=== PATIENT | male | born 1965 | race Caucasian/White ===

== ENCOUNTER → 2017-06-09 | Outpatient (CLI) | payer OTHER ==
[~2017-06-09] MED LIST: AMLO-114 PO; BYS/5 PO; CALC1CHW46 PO; LISI40TA PO; NAPR220T40 PO; OPTIRAY 320 IV PRN
--- NOTE | 2017-06-09 16:24 | DIAGNOSTIC IMAGING REPORT ---
(CHEST) THORAX WITH CLINICAL HISTORY: 51 years-old Male presenting with GERD, COUGH. TECHNIQUE: Multidetector CT imaging of the chest was performed after the administration of intravenous contrast. IV contrast: 92 mL of Optiray 320. A dose lowering technique was used consistent with the principles of ALARA (as low as reasonably achievable). COMPARISON: 08/08/2011. CT DOSE (mGy.cm): The estimated cumulative dose is 704.43 mGycm. FINDINGS: [employer] topogram: Unremarkable. On soft tissue windows, normal thyroid and thoracic inlet. Scattered subcentimeter mediastinal lymph nodes. Normal aorta. Possible left atrial enlargement. Coronary artery calcification. No pericardial or pleural effusion. Suggestion of hepatic steatosis. On lung windows, minimal groundglass opacity and subpleural reticulation at the lung bases. Solid 5 mm perifissural nodule in the left lower lobe (series 4 image 128). Airways patent. Mild bronchial wall thickening suggested. On bone windows, degenerative changes of the spine. IMPRESSION: 1. No acute intrathoracic pathology. 2. Solid 5 mm perifissural nodule in the left lower lobe. This is unchanged since 2010. 3. Minimal groundglass opacity and subpleural reticulation at the lung bases, possibly atelectasis or postinfectious/postinflammatory. 4. Mild bronchial wall thickening suggested, nonspecific. 5. Possible left atrial enlargement. Electronically signed by: Surendra Biswas M.D. 06/09/2017 4:23 PM Dictated Date/Time: 06/09/2017 4:18 PM
== END | disposition home or self-care (01) ==
LOC: C.CTS 15:48
PROVIDERS: ATTEND Physician Assistant
DX: J44.1 Chronic obstructive pulmonary disease with (acute) exacerbation (principal); R06.09 Other forms of dyspnea; R05 Cough; K21.9 Gastro-esophageal reflux disease without esophagitis

== ENCOUNTER → 2017-12-19 | Outpatient (CLI) | payer OTHER ==
[~2017-12-19] MED LIST changes: -OPTIRAY 320 IV PRN
--- NOTE | 2017-12-19 12:57 | DIAGNOSTIC IMAGING REPORT ---
ABDOMEN FOR HERNIA HISTORY: 52 years-old Male R10.9 Abdominal pain, unspecified abdominal [id number] acute right-sided abdominal pain with history of prior hernia repair COMPARISON: CT chest 06/09/2017 TECHNIQUE: Multiple real-time sonographic images of the abdominal right upper quadrant were obtained assessing grayscale appearance FINDINGS: No definite abdominal wall hernia identified. There is increased echogenicity of the liver with poor through transmission suggesting fatty infiltration. Liver measures up to 24 cm in length. No intrahepatic biliary ductal dilation. The visualized portions of the gallbladder appear unremarkable without wall thickening or shadowing cholelithiasis. Study is overall limited secondary to patient body habitus. IMPRESSION: 1. No abdominal wall hernia identified within the right upper abdomen. 2. Hepatic steatosis. The above report was generated using voice recognition software. It may contain grammatical, syntax or spelling errors. Electronically signed by: Sandro Rehman M.D. 12/19/2017 12:56 PM Dictated Date/Time: 12/19/2017 12:51 PM
== END | disposition home or self-care (01) ==
LOC: C.ULTR 12:21
PROVIDERS: ATTEND Family Medicine
DX: R10.9 Unspecified abdominal pain (principal); K76.0 Fatty (change of) liver, not elsewhere classified

== ENCOUNTER 2019-04-11 18:38 | Inpatient (IN) ==
[2019-04-11] MEDS ORDERED: HYDROmorphone INJ 0.5 MG/0.5 ML SYR IV STA (18:59)
[2019-04-11] MEDS ORDERED: ONDANSETRON INJ 2 MG/ML 2 ML VIAL IV STA (18:59)
[2019-04-11] MEDS ORDERED: SODIUM CHLORIDE 0.9% 1000ML 2,000 ML IV ONE (19:01)
[2019-04-11 19:25] LABS: Basophils # (auto) 0.06 K/uL (0-0.2); Basophils % (auto) 0.4 %; Eosinophils # (auto) 0.09 K/uL (0-0.5); Eosinophils % (auto) 0.6 %; Hematocrit (blood only) 44.8 % (42-52); Hemoglobin 16.5 g/dL (14.0-18.0); Immature Granulocytes # (auto) 0.11 K/uL (0.00-0.02); Immature Granulocytes % (auto) 0.7 %; Lymphocytes # (auto) 2.65 K/uL (1.2-3.4); Mean Corpuscular Hgb Conc 36.8 g/dL (32-36); Mean Platelet Volume 8.9 fL (7.4-10.4); Monocytes # (auto) 1.65 K/uL (0.11-0.59); Monocytes % (auto) 11.2 %; Neutrophils # (auto) 10.18 K/uL (1.4-6.5); Neutrophils % (auto) 69.1 %; Platelet Count 340 K/uL (130-400); RDW Coefficient of Variation 13.4 % (11.5-14.5); Red Blood Count 4.98 M/uL (4.7-6.1); White Blood Count 14.74 K/uL (4.8-10.8)
[2019-04-11 19:52] LABS: Alanine Aminotransferase 51 U/L (12-78); Albumin Globulin Ratio 1.2 (0.9-2); Alkaline Phosphatase 75 U/L (45-117); Aspartate Aminotransferase 55 U/L (15-37); BUN Creatinine Ratio 8.2 (10-20); Bilirubin,Total 1.1 mg/dl (0.2-1); Blood Urea Nitrogen 48 mg/dl (7-18); Calcium 10.4 mg/dl (8.5-10.1); Carbon Dioxide 19 mmol/L (21-32); Chloride 97 mmol/L (98-107); Est GFR (African American) 11.9; Est GFR (Non-African American) 10.2; Globulin 4.2 gm/dl (2.5-4.0); Glucose 125 mg/dl (70-99); Magnesium 2.6 mg/dl (1.8-2.4); Potassium 4.6 mmol/L (3.5-5.1); Sodium 132 mmol/L (136-145); Total Protein 9.2 gm/dl (6.4-8.2); Troponin I < 0.015 ng/ml (0-0.045)
--- NOTE | 2019-04-11 20:07 | Ultrasound Report ---
ULTRASOUND RIGHT UPPER QUADRANT ABDOMEN CLINICAL HISTORY: Right upper quadrant abdominal pain. COMPARISON STUDY: Abdominal CT dated 12/07/2007. TECHNIQUE: Real-time, grayscale, and color flow sonography of the right upper quadrant of the abdomen was performed. Images are reviewed in the transverse and longitudinal planes. FINDINGS: Liver: The liver is enlarged and demonstrates heterogeneously increased echotexture consistent with s evere hepatic steatosis. Note that this degrades acoustic penetration of the liver. Fatty sparing is seen adjacent to gallbladder fossa. There is no intrahepatic biliary ductal dilatation. The main port al vein is patent. Gallbladder: The gallbladder is normal in appearance. No gallstones are identified. There is no gallb ladder wall thickening or pericholecystic fluid. A sonographic Cramer's sign is reportedly absent. Th e common bile duct measures up to 0.5 cm in diameter. Pancreas: Not visualized due to overlying bowel gas. Right kidney: Survey images of the right kidney demonstrate normal size and echotexture. There is no hydronephrosis. Ascites: None. IMPRESSION: 1. No acute sonographic abnormality is identified in the right upper quadrant. No gallstones are seen . 2. Hepatomegaly and severe hepatic steatosis. Electronically signed by: Andrade Zuñiga M.D. 04/11/2019 8:06 PM
[2019-04-11 20:08] LABS: Lyme Ab IgG w/WB Rflx Negative (Negative); Lyme Ab IgM w/WB Rflx Negative (Negative)
--- NOTE | 2019-04-11 20:21 | CT Scan Report ---
CT SCAN OF THE ABDOMEN AND PELVIS WITHOUT IV CONTRAST CLINICAL HISTORY: Generalized abdominal pain. Acute renal failure. Cramping. COMPARISON STUDY: Abdominal CT dated 12/07/2007. Abdominal ultrasound performed the same day 9. TECHNIQUE: CT scan of the abdomen and pelvis is performed from the lung bases to the proximal femora. Images are reviewed in the axial, sagittal, and coronal planes. IV contrast was not administered for this examination due to renal insufficiency. Note that the examination is suboptimal without oral an d IV contrast. A dose lowering technique was utilized adhering to the principles of ALARA. CT DOSE: 1701.77 mGy.cm FINDINGS: Lung bases: The heart is normal in size and without pericardial effusion. The lung bases are clear. Liver: The unenhanced liver is enlarged, measuring 25 cm in length. The liver demonstrates diffusely diminished attenuation consistent with severe hepatic steatosis. Fatty sparing is seen adjacent to th e gallbladder fossa. There is no intrahepatic biliary ductal dilatation. Gallbladder: Unremarkable. Spleen: Normal in size and attenuation. Pancreas: The unenhanced pancreas is grossly unremarkable. Adrenal glands: Unremarkable. Kidneys: The unenhanced kidneys are normal in size and without hydronephrosis. There are no renal peter culi identified. There is no evidence of contour deforming renal mass lesion. A subcentimeter hyperde nse cyst is noted in the upper pole of the right kidney on image #112. A circumaortic left renal vein is incidentally noted. Abdominal vasculature: The abdominal aorta is normal in course and caliber noting mild atheroscleroti c calcification. Bowel: There is no bowel obstruction. The appendix is well-visualized and normal. Peritoneum: There is no intraperitoneal free air or abdominal ascites. Lymphadenopathy: None. Pelvic viscera: The bladder is decompressed and not well evaluated. The prostate and seminal vesicles are normal as imaged. There is a small fat-containing right inguinal hernia. Skeletal structures: Degenerative changes noted in the sacroiliac joints. A large posterior disc oste ophyte complex is seen at L4-L5. No lytic or blastic lesions are seen. IMPRESSION: 1. There are no acute infectious or inflammatory findings in the abdomen or pelvis. 2. Hepatomegaly and severe hepatic steatosis. Electronically signed by: Andrade Zuñiga M.D. 04/11/2019 8:19 PM
[2019-04-11] MEDS ORDERED: ACETAMINOPHEN 500 MG TAB PO STA (20:37)
[2019-04-11] MEDS ORDERED: SODIUM CHLORIDE 0.9% 1000ML 1,000 ML IV SCH (20:45)
[2019-04-11 21:16] LABS: Creatine Kinase 831 U/L (39-308)
--- NOTE | 2019-04-11 21:53 | History & Physical Report ---
Date of Service April 11, 2019 Assessment & Plan (1) Acute renal failure: 53-year-old male with history of hypertension, prediabetes, COPD, GERD, previous history of Lyme disease presents with myalgias in the setting of dehydration. Reports cramping started last night and everywhere now. Had nausea and vomiting this afternoon. associate with headache, lightheadedness. Concerning for acute kidney injury and rhabdomyolysis. 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 3 times daily, tramadol 50 mg every 4 hours as needed and morphine 2 mg every 4 hours as needed Hyponatremia likely hypovolemic Sodium 132 Serum osmolality pending Received IV fluids 4 L bolus Continue LR at 200 cc/h Hypermagnesemia and hypercalcemia Mag 2.6 and calcium 10.4 -sample likely hemoconcentrated in the setting of significant dehydration Repeat BMP ordered after rehydration Hepatomegaly and severe hepatic steatosis -incidental CT finding LFT abnormalities: Total bili 1.1 and AST 55, possibly somewhat from hemoconcentrated sample in the setting of significant dehydration Repeat CMP in a.m. Hypertension Continue amlodipine and nebivolol Hold lisinopril in the setting of MELISSA Prediabetes Hold metformin Glucose checks per unit protocol COPD Continue Combivent Respimat and Spiriva inhalers GERD Continue ranitidine as needed Code: Full Dispo: PCU telemetry DVT prophylaxis: Heparin SQ (2) Diabetes mellitus type 2 in nonobese: (3) Acid reflux: (4) COPD (chronic obstructive pulmonary disease): History of Present Illness Chief Complaint: Body aches and dehydration Primary Care Provider: Matiled Pete DO 53-year-old male with history of hypertension, prediabetes, COPD, GERD, previous history of Lyme disease presents with myalgias in the setting of dehydration. Reports cramping started last night and everywhere now. Had nausea and vomiting this afternoon. associate with headache, lightheadedness. Denies any fever, chills, chest pain, shortness of breath, nausea, vomiting, abdominal pain, diarrhea or dysuria at this time. Last urinated at 8:00 this morning. Patient was worried he may have Lyme disease again so presented to the ED Denies previous history of smoking however both parents were heavy smokers History of incarcerated hernia repair Allergies Allergy/AdvReac Type Severity Reaction Status Date / Time aspirin Allergy Unknown Nose Bleed Verified 04/11/19 19:32 Home Medications Home Medications Medication Instructions Recorded Confirmed Type amlodipine 10 mg PO DAILY 01/14/19 04/11/19 History ipratropium-albuterol [Combivent 2 puff INHALATION BID PRN 01/14/19 04/11/19 History Respimat] lisinopril 40 mg PO DAILY 01/14/19 04/11/19 History metformin 500 mg PO BID 01/14/19 04/11/19 History tiotropium bromide [Spiriva with 1 cap INHALATION DAILY PRN 01/14/19 04/11/19 History HandiHaler] nebivolol 5 mg tablet 5 mg PO DAILY #90 tab 03/20/19 04/11/19 Rx acetaminophen 300 mg-codeine 30 mg 0.5 tab PO DIRECTED PRN #30 tab 04/02/19 04/11/19 History tablet ranitidine 150 mg tablet 150 mg PO BID PRN #60 tab 04/02/19 04/11/19 History meloxicam 15 mg PO DAILY 04/11/19 04/11/19 History Past Med/Surg History Medical History Generalized osteoarthritis of multiple sites (Acute) Diabetes mellitus type 2 in nonobese (Acute) Chronic airway obstruction, mixed type (Acute) Acid reflux (Acute) COPD (chronic obstructive pulmonary disease) Hypertension (Chronic) Lyme disease (Acute) Family History Other Cancer Diabetes Heart disease Hypertension Lung cancer Social History Preferred Language: [place] Communication Ability: Effective Wellness Assistant Required: No Beliefs That Will Affect Care: None Current Living Situation: Spouse Other Information That Helps Us Care for You: No Feels Safe at Home: Yes Safety Concerns: Feels Safe At This Time Smoking Status: Never smoker Second Hand Exposure: Yes (as a child, parents were both "chain smokers") Hx Alcohol Use: Yes Alcohol type: beer Hx Substance Use: No Review of Systems Review of Systems: As per HPI Physical Exam Physical Exam: General: In mild distress due to active cramping myalgias HEENT: dry mucous membranes Neuro: A&O x 4 Pulm: CTAB equal breath sounds bilaterally CV: RRR, no m/r/g Abdomen:+BS, no TTP in all quadrants, non-distended LE: no LE edema, no calf TTP Results & Data Vital Signs (Past 12 Hours) Vital Signs Temp Pulse Pulse Resp BP BP Pulse Ox 04/11/19 21:00 57 L 18 105/63 94 04/11/19 20:33 55 L 20 92/36 L 95 04/11/19 20:14 58 L 14 95/37 L 95 04/11/19 20:13 59 L 18 95/37 L 94 04/11/19 19:24 54 L 18 104/52 L 98 04/11/19 19:00 60 18 80/58 L 98 04/11/19 18:50 36.7 C 63 20 71/39 L 95 Laboratory Results Abnormal lab results 04/11/19 04/11/19 Range/Units 19:16 19:16 WBC 14.74 H (4.8-10.8) K/uL MCHC 36.8 H (32-36) g/dL Immature Gran # (Auto) 0.11 H (0.00-0.02) K/uL Neut # (Auto) 10.18 H (1.4-6.5) K/uL [place] # (Auto) 1.65 H (0.11-0.59) K/uL Sodium 132 L (136-145) mmol/L Chloride 97 L (98-107) mmol/L Carbon Dioxide 19 L (21-32) mmol/L Anion Gap 16.0 H (3-11) BUN 48 H (7-18) mg/dl Creatinine 5.86 H* (0.6-1.4) mg/dl BUN/Creatinine Ratio 8.2 L (10-20) Glucose 125 H (70-99) mg/dl Calcium 10.4 H (8.5-10.1) mg/dl Magnesium 2.6 H (1.8-2.4) mg/dl Total Bilirubin 1.1 H (0.2-1) mg/dl AST 55 H (15-37) U/L Total Creatine Kinase 831 H (39-308) U/L Total Protein 9.2 H (6.4-8.2) gm/dl Globulin 4.2 H (2.5-4.0) gm/dl Diagnostic Findings CT SCAN OF THE ABDOMEN AND PELVIS WITHOUT IV CONTRAST CLINICAL HISTORY: Generalized abdominal pain. Acute renal failure. Cramping. COMPARISON STUDY: Abdominal CT dated 12/07/2007. Abdominal ultrasound performed the same day 04/11/2019. TECHNIQUE: CT scan of the abdomen and pelvis is performed from the lung bases to the proximal femora. Images are reviewed in the axial, sagittal, and coronal planes. IV contrast was not administered for this examination due to renal insufficiency. Note that the examination is suboptimal without oral and IV contrast. A dose lowering technique was utilized adhering to the principles of ALARA. CT DOSE: 1701.77 mGy.cm FINDINGS: Lung bases: The heart is normal in size and without pericardial effusion. The lung bases are clear. Liver: The unenhanced liver is enlarged, measuring 25 cm in length. The liver demonstrates diffusely diminished attenuation consistent with severe hepatic steatosis. Fatty sparing is seen adjacent to the gallbladder fossa. There is no intrahepatic biliary ductal dilatation. Gallbladder: Unremarkable. Spleen: Normal in size and attenuation. Pancreas: The unenhanced pancreas is grossly unremarkable. Adrenal glands: Unremarkable. Kidneys: The unenhanced kidneys are normal in size and without hydronephrosis. There are no renal calculi identified. There is no evidence of contour deforming renal mass lesion. A subcentimeter hyperdense cyst is noted in the upper pole of the right kidney on image #112. A circumaortic left renal vein is incidentally noted. Abdominal vasculature: The abdominal aorta is normal in course and caliber noting mild atherosclerotic calcification. Bowel: There is no bowel obstruction. The appendix is well-visualized and normal. Peritoneum: There is no intraperitoneal free air or abdominal ascites. Lymphadenopathy: None. Pelvic viscera: The bladder is decompressed and not well evaluated. The prostate and seminal vesicles are normal as imaged. There is a small fat-containing right inguinal hernia. Skeletal structures: Degenerative changes noted in the sacroiliac joints. A large posterior disc osteophyte complex is seen at L4-L5. No lytic or blastic lesions are seen. IMPRESSION: 1. There are no acute infectious or inflammatory findings in the abdomen or pelvis. 2. Hepatomegaly and severe hepatic steatosis. ULTRASOUND RIGHT UPPER QUADRANT ABDOMEN CLINICAL HISTORY: Right upper quadrant abdominal pain. COMPARISON STUDY: Abdominal CT dated 12/07/2007. TECHNIQUE: Real-time, grayscale, and color flow sonography of the right upper quadrant of the abdomen was performed. Images are reviewed in the transverse and longitudinal planes. FINDINGS: Liver: The liver is enlarged and demonstrates heterogeneously increased echotexture consistent with severe hepatic steatosis. Note that this degrades acoustic penetration of the liver. Fatty sparing is seen adjacent to gallbladder fossa. There is no intrahepatic biliary ductal dilatation. The main portal vein is patent. Gallbladder: The gallbladder is normal in appearance. No gallstones are identified. There is no gallbladder wall thickening or pericholecystic fluid. A sonographic Cramer's sign is reportedly absent. The common bile duct measures up to 0.5 cm in diameter. Pancreas: Not visualized due to overlying bowel gas. Right kidney: Survey images of the right kidney demonstrate normal size and echotexture. There is no hydronephrosis. Ascites: None. IMPRESSION: 1. No acute sonographic abnormality is identified in the right upper quadrant. No gallstones are seen. 2. Hepatomegaly and severe hepatic steatosis. Code Status & VTE Plan Code Status Full Code VTE Prophylaxis Plan VTE Prophylaxis will be ordered: Yes Supervising Physician Co-Signing Physician Notes Attending addendum: I have physically seen this patient, have supervised the medical residents activities, and agree with the H&P unless as otherwise noted. Assessment and Plan: Acute kidney injury/rhabdomyolysis/dehydration/hypotension- Creatinine upon admission 5.86, with baseline 0.94 seen on 01/14/2019. Total CK 831 and AST 55. We will give a total fluid bolus of 4 L of normal saline and LR. Then maintain fluids at 200 mils per hour. Follow serial laboratories. Hold lisinopril, meloxicam and metformin. Patient reports that many years ago he had a similar issue with acute kidney injury. Hepatomegaly/severe fatty liver- Likely function of his weight. We will also take a look at his cholesterol and hemoglobin A1c. Review old records, and has never been tested for hepatitis. These labs should be performed Remaining orders and notations as noted. PG Care Time/CCT Total # of Minutes Spent Total Time Spent with Patient: Total time spent is greater than 50% in coordination of care (as documented) at patient's floor/unit and/or counseling patient: Resident Activity Tracking Resident Involvement: Resident Care Provided Care Provided: Adult Hospital Medicine (1) Acute renal failure Acute renal failure type: unspecified Qualified Code(s): N17.9 - Acute kidney failure, unspecified
[2019-04-11] MEDS ORDERED: LACTATED RINGER'S 1,000 ML IV ONE (22:15)
[2019-04-12] MEDS ORDERED: IPRATROPIUM BROMIDE/ALBUTEROL respimat INH INH PRN (00:11)
[2019-04-12] MEDS ORDERED: MoRPHine SULFATE 2 MG/ML CARP IV PRN (00:11)
[2019-04-12] MEDS ORDERED: ONDANSETRON INJ 2 MG/ML 2 ML VIAL IV PRN (00:11)
[2019-04-12] MEDS ORDERED: TRAMADOL HCL 50 MG TABLET PO PRN (00:11)
[2019-04-12] MEDS ORDERED: TIOTROPIUM BROMIDE 5 PUFF/90 MCG INH INH PRN (00:11)
[2019-04-12] MEDS ORDERED: ACETAMINOPHEN 325 MG TAB PO PRN (00:11)
[2019-04-12] MEDS: LACTATED RINGER'S 1,000 ML IV SCH ×5 (00:30→20:45)
--- NOTE | 2019-04-12 00:35 | Emergency Department Note ---
Entered by Joana Comer acting as a scribe for Rosanne Vides MD History of Present Illness General Chief complaint: Dehydration Stated complaint: SOB, CRAMPING, DEHYDRATED Source: patient and family () History of Present Illness Onset (ago): day(s) 1 Location: abdomen (dehydration) Pain Consistency: + other (worsening) Maximum Pain Intensity: 6 Relieved By: + none Associated symptoms: + denies other symptoms (diarrhea and bloody stools), + diaphoresis, + headaches, + nausea/vomiting and + other (intermittent cramping abdominal pain) Treatments prior to arrival: other (tylenol) The patient is a 53 year old M who presents to the Emergency Room with complaints of worsening dehydration that occurred 1 day ago. The patient states that he is currently experiencing intermittent cramping abdominal pain, vomiting, diaphoresis, and headaches. The patient denies experiencing any diarrhea and bloody stools. 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 The patient notes that he has been drinking a lot of fluids but adds that he has been sweating his entire fluid intake out. He states that he only urinated once this morning. He adds that he is not eating much. He notes that he had mesh placed for hernia surgery in the past. He denies a history of a cholecystectomy. He states that he was treated for Lymes 5 years ago. He adds that he has a current history of hypertension and notes that he takes medications for it. He states that he has been taking Tylenol for his pain. Home Medications Home Medications Medication Instructions Recorded Confirmed Type Combivent Respimat 2 puff INHALATION BID PRN 01/14/19 04/11/19 History Spiriva with HandiHaler 1 cap INHALATION DAILY PRN 01/14/19 04/11/19 History amlodipine 10 mg PO DAILY 01/14/19 04/11/19 History nebivolol 5 mg tablet 5 mg PO DAILY #90 tab 03/20/19 04/11/19 Rx acetaminophen 300 mg-codeine 30 mg 0.5 tab PO DIRECTED PRN #30 tab 04/02/19 04/11/19 History tablet ranitidine 150 mg tablet 150 mg PO BID PRN #60 tab 04/02/19 04/11/19 History ondansetron 8 mg PO DAILY 7 Days #7 tab 04/13/19 Rx Allergies Allergy/AdvReac Type Severity Reaction Status Date / Time aspirin AdvReac Unknown Nose Bleed Verified 04/12/19 07:27 Past Med/Surg History Medical History Generalized osteoarthritis of multiple sites (Acute) Diabetes mellitus type 2 in nonobese (Acute) Chronic airway obstruction, mixed type (Acute) Acid reflux (Acute) COPD (chronic obstructive pulmonary disease) Hypertension (Chronic) Lyme disease (Acute) Family History Other Cancer Diabetes Heart disease Hypertension Lung cancer Social History Preferred Language: Turkish Communication Ability: Effective Beliefs That Will Affect Care: None Current Living Situation: Spouse Feels Safe at Home: Yes Smoking Status: Never smoker Second Hand Exposure: Yes (as a child, parents were both "chain smokers") Hx Alcohol Use: Yes Alcohol type: beer Hx Substance Use: No Review of Systems See HPI for pertinent positives & negatives. and A total of 10 systems reviewed and were otherwise negative Physical Exam Vital Signs Vital Signs - 24 hr 04/11/19 18:50 04/11/19 19:00 04/11/19 19:24 Temperature 36.7 C Temperature Source Oral Sepsis Recent Fever Within 48 Hours No Sepsis Action Taken by Nursing No Action Required Pulse Rate 63 Pulse Rate [Right Finger] 60 54 L Pulse Rate from SpO2 Sensor Pulse Rhythm Regular Pulse Rhythm [Right Finger] Regular Pulse Strength Normal Pulse Strength [Right Finger] Normal Respiratory Rate 20 18 18 Respiratory Effort / Characteristics Non-Labored Spontaneous Non-Labored Respiratory Depth Normal Normal Respiratory Pattern Regular Regular Blood Pressure 71/39 L Blood Pressure [Right Arm] 80/58 L 104/52 L Blood Pressure Mean 49 Blood Pressure Mean [Right Arm] 65 69 Blood Pressure Position Sitting Blood Pressure Position [Right Arm] Lying Lying Pulse Oximetry 95 98 98 Oxygen Delivery Method Room Air Room Air 04/11/19 20:13 04/11/19 20:14 04/11/19 20:33 Temperature Temperature Source Sepsis Recent Fever Within 48 Hours Sepsis Action Taken by Nursing Pulse Rate 58 L 55 L Pulse Rate [Right Finger] 59 L Pulse Rate from SpO2 Sensor 58 L 59 L Pulse Rhythm Pulse Rhythm [Right Finger] Regular Pulse Strength Pulse Strength [Right Finger] Normal Respiratory Rate 18 14 20 Respiratory Effort / Characteristics Non-Labored Respiratory Depth Normal Respiratory Pattern Regular Blood Pressure 95/37 L 92/36 L Blood Pressure [Right Arm] 95/37 L Blood Pressure Mean 56 54 Blood Pressure Mean [Right Arm] 56 Blood Pressure Position Blood Pressure Position [Right Arm] Sitting Pulse Oximetry 94 95 95 Oxygen Delivery Method Room Air 04/11/19 21:00 04/11/19 21:30 Temperature Temperature Source Sepsis Recent Fever Within 48 Hours Sepsis Action Taken by Nursing Pulse Rate 57 L 63 Pulse Rate [Right Finger] Pulse Rate from SpO2 Sensor 61 64 Pulse Rhythm Pulse Rhythm [Right Finger] Pulse Strength Pulse Strength [Right Finger] Respiratory Rate 18 26 H Respiratory Effort / Characteristics Respiratory Depth Respiratory Pattern Blood Pressure 105/63 134/69 Blood Pressure [Right Arm] Blood Pressure Mean 77 90 Blood Pressure Mean [Right Arm] Blood Pressure Position Blood Pressure Position [Right Arm] Pulse Oximetry 94 94 Oxygen Delivery Method Vital signs reviewed. General: Well-appearing male, in no significant distress. HEENT: No scleral icterus, PERRLA, neck supple. Atraumatic. Cardiovascular: Regular rate and rhythm, no extra sounds. Pulmonary: Clear to auscultation bilaterally, normal work of breathing. Abdomen: Soft, obese, colicky type abdominal pain, nontender, nondistended, positive bowel sounds. Musculoskeletal: Atraumatic, no peripheral edema. Neurologic: Patient awake alert and oriented x 3, full strength in all 4 extremities. Cranial nerves 2 through 12 grossly intact. Skin: Warm, dry, no rash Course 1854: The patient was evaluated in room C10. A complete history and physical exam was performed. 1999: I reviewed the patient's case with Dr. Pantera Reynolds, [facility] Hospitalist. He will evaluate the patient for further management. 2048: I re-checked the patient and updated him on the plan. Consultations Consultation #1: I reviewed the patient's case with Dr. Pantera Reynolds, [facility] Hospitalist. He will evaluate the patient for further management. Time: 20:00 Administered Medications Discontinued Medications Acetaminophen (Tylenol) 1,000 mg PO NOW STA Stop: 04/11/19 20:38 Last Admin: 04/11/19 20:58 Dose: 1,000 mg Documented by: [id number] Acetaminophen/Butalbital/Caffeine (Fioricet) 2 tab PO Q4H PRN PRN Reason: Headache Stop: 05/12/19 10:36 Last Admin: 04/12/19 11:43 Dose: 2 tab Documented by: [id number] Amlodipine Besylate (Norvasc) 10 mg PO DAILY [facility] Stop: 05/12/19 08:59 Last Admin: 04/13/19 08:02 Dose: 10 mg Documented by: [id number] Admin: 04/12/19 08:00 Dose: 10 mg Documented by: [id number] Baclofen (Lioresal) 20 mg PO TID CARLENE Stop: 05/12/19 00:10 Last Admin: 04/13/19 08:02 Dose: 20 mg Documented by: [id number] Admin: 04/12/19 21:24 Dose: 20 mg Documented by: [id number] Admin: 04/12/19 13:49 Dose: 20 mg Documented by: [id number] Admin: 04/12/19 08:00 Dose: 20 mg Documented by: [id number] Admin: 04/12/19 00:37 Dose: 20 mg Documented by: [id number] Diclofenac Sodium (Voltaren 1% Top) 1 appln EXT QID [facility] Stop: 05/12/19 10:59 Last Admin: 04/13/19 13:05 Dose: Not Given Documented by: [id number] Admin: 04/13/19 08:03 Dose: Not Given Documented by: [id number] Admin: 04/12/19 21:24 Dose: Not Given Documented by: [id number] Admin: 04/12/19 14:46 Dose: 1 appln Documented by: [id number] Admin: 04/12/19 14:04 Dose: Not Given Documented by: [id number] Admin: 04/12/19 12:13 Dose: Not Given Documented by: [id number] Heparin Sodium (Porcine) (Heparin Sodium (Porcine)) 5,000 units SQ Q12 [facility] Stop: 05/12/19 08:59 Last Admin: 04/13/19 08:04 Dose: 5,000 units Documented by: [id number] Cosigned by: [id number] Admin: 04/12/19 21:19 Dose: 5,000 units Documented by: [id number] Cosigned by: [id number] Admin: 04/12/19 08:40 Dose: 5,000 units Documented by: [id number] Cosigned by: [id number] Hydromorphone HCl (Dilaudid) 0.5 mg IV NOW [facility] Stop: 04/11/19 19:00 Last Admin: 04/11/19 19:28 Dose: 0.5 mg Documented by: [id number] Sodium Chloride (Nss 1000ml) 2,000 mls @ 999 mls/hr IV .Q2H1M ONE Stop: 04/11/19 21:01 Last Infusion: 04/11/19 20:29 Dose: 0 mls/hr Documented by: [id number] Admin: 04/11/19 19:21 Dose: 999 mls/hr Documented by: [id number] Sodium Chloride (Nss 1000ml) 1,000 mls @ 200 mls/hr IV .Q5H CARLENE Stop: 05/11/19 20:44 Last Infusion: 04/11/19 22:09 Dose: 0 mls/hr Documented by: [id number] Admin: 04/11/19 20:54 Dose: 999 mls/hr Documented by: [id number] Lactated Ringer's (Lr) 1,000 mls @ 999 mls/hr IV .Q1H1M ONE Stop: 04/11/19 23:15 Last Infusion: 04/11/19 22:44 Dose: 0 mls/hr Documented by: [id number] Admin: 04/11/19 21:40 Dose: 999 mls/hr Documented by: [id number] Lactated Ringer's (Lr) 1,000 mls @ 200 mls/hr IV .Q5H CARLENE Stop: 05/12/19 00:10 Last Admin: 04/13/19 11:09 Dose: 200 mls/hr Documented by: [id number] Infusion: 04/13/19 10:58 Dose: 200 mls/hr Documented by: [id number] Admin: 04/13/19 05:58 Dose: 200 mls/hr Documented by: [id number] Infusion: 04/13/19 05:58 Dose: 200 mls/hr Documented by: [id number] Admin: 04/13/19 01:05 Dose: 200 mls/hr Documented by: [id number] Infusion: 04/13/19 01:05 Dose: 200 mls/hr Documented by: [id number] Admin: 04/12/19 20:45 Dose: 200 mls/hr Documented by: [id number] Infusion: 04/12/19 20:45 Dose: 200 mls/hr Documented by: [id number] Admin: 04/12/19 15:55 Dose: 200 mls/hr Documented by: [id number] Infusion: 04/12/19 15:13 Dose: 200 mls/hr Documented by: [id number] Infusion: 04/12/19 11:24 Dose: 200 mls/hr Documented by: [id number] Admin: 04/12/19 10:13 Dose: 200 mls/hr Documented by: [id number] Infusion: 04/12/19 10:13 Dose: 0 mls/hr Documented by: [id number] Admin: 04/12/19 05:05 Dose: 200 mls/hr Documented by: [id number] Infusion: 04/12/19 05:05 Dose: 200 mls/hr Documented by: [id number] Admin: 04/12/19 00:30 Dose: 200 mls/hr Documented by: [id number] Valproic Acid 500 mg/ Dextrose 55 mls @ 55 mls/hr IV NOW STA Stop: 04/13/19 11:31 Last Infusion: 04/13/19 12:09 Dose: 0 mls/hr Documented by: [id number] Admin: 04/13/19 11:10 Dose: 55 mls/hr Documented by: [id number] Magnesium Sulfate/Dextrose (Magnesium Sulfate / D5w) 1 gm in 100 mls @ 100 mls/hr IV Q1H CARLENE Stop: 04/13/19 12:29 Last Infusion: 04/13/19 14:10 Dose: 0 mls/hr Documented by: [id number] Admin: 04/13/19 13:06 Dose: 100 mls/hr Documented by: [id number] Infusion: 04/13/19 13:06 Dose: 100 mls/hr Documented by: [id number] Admin: 04/13/19 12:06 Dose: 100 mls/hr Documented by: [id number] Nebivolol (Bystolic) 5 mg PO DAILY CARLENE Stop: 05/12/19 08:59 Last Admin: 04/13/19 08:03 Dose: 5 mg Documented by: [id number] Admin: 04/12/19 08:00 Dose: 5 mg Documented by: [id number] Ondansetron HCl (Zofran) 4 mg IV NOW STA Stop: 04/11/19 19:00 Last Admin: 04/11/19 19:28 Dose: 4 mg Documented by: [id number] Ondansetron HCl (Zofran) 4 mg IV Q6H PRN PRN Reason: Nausea Stop: 05/12/19 00:10 Last Admin: 04/12/19 13:49 Dose: 4 mg Documented by: [id number] Ondansetron HCl (Zofran Odt) 8 mg PO NOW STA Stop: 04/13/19 10:17 Last Admin: 04/13/19 11:08 Dose: 8 mg Documented by: [id number] Medical Decision Making Differential Diagnosis Differential diagnosis includes: gastroenteritis, food borne illness, infections, appendicitis, diverticulitis, inflammatory bowel disease, obstruction, GI bleed, biliary pathology, dehydration, as well as others were entertained. Medical Records Attestation: I reviewed the patient's medical records. Home Medications Current Medication List: was personally reviewed by me Laboratory Data Attestation: I reviewed the patient's lab results. Result diagrams: 04/13/19 05:49 04/13/19 05:49 Lab Results 04/11/19 04/11/19 04/11/19 Range/Units 19:01 19:16 19:16 WBC 14.74 H (4.8-10.8) K/uL RBC 4.98 (4.7-6.1) M/uL Hgb 16.5 (14.0-18.0) g/dL Hct 44.8 (42-52) % MCV 90.0 (80-100) fL MCH 33.1 (25-34) pg MCHC 36.8 H (32-36) g/dL RDW Std Deviation 44.0 (36.4-46.3) fL RDW Coeff of Mary 13.4 (11.5-14.5) % Plt Count 340 (130-400) K/uL MPV 8.9 (7.4-10.4) fL Immature Gran % (Auto) 0.7 % Neut % (Auto) 69.1 % Lymph % (Auto) 18.0 % Rusk % (Auto) 11.2 % Eos % (Auto) 0.6 % Baso % (Auto) 0.4 % Immature Gran # (Auto) 0.11 H (0.00-0.02) K/uL Neut # (Auto) 10.18 H (1.4-6.5) K/uL Lymph # (Auto) 2.65 (1.2-3.4) K/uL Rusk # (Auto) 1.65 H (0.11-0.59) K/uL Eos # (Auto) 0.09 (0-0.5) K/uL Baso # (Auto) 0.06 (0-0.2) K/uL Sodium 132 L (136-145) mmol/L Potassium 4.6 (3.5-5.1) mmol/L Chloride 97 L (98-107) mmol/L Carbon Dioxide 19 L (21-32) mmol/L Anion Gap 16.0 H (3-11) BUN 48 H (7-18) mg/dl Creatinine 5.86 H* (0.6-1.4) mg/dl Est Cr Clr Drug Dosing Not Reportable Est GFR ( Amer) 11.9 Est GFR (Non-Af Amer) 10.2 BUN/Creatinine Ratio 8.2 L (10-20) Glucose 125 H (70-99) mg/dl Osmolality 297 (280-300) mOsm/kg Lactate (0.4-2.0) mmol/L Calcium 10.4 H (8.5-10.1) mg/dl Magnesium 2.6 H (1.8-2.4) mg/dl Total Bilirubin 1.1 H (0.2-1) mg/dl AST 55 H (15-37) U/L ALT 51 (12-78) U/L Alkaline Phosphatase 75 (45-117) U/L Total Creatine Kinase 831 H (39-308) U/L Troponin I < 0.015 (0-0.045) ng/ml Total Protein 9.2 H (6.4-8.2) gm/dl Albumin 5.0 (3.4-5.0) gm/dl Globulin 4.2 H (2.5-4.0) gm/dl Albumin/Globulin Ratio 1.2 (0.9-2) Lipase 216 (73-393) U/L Lyme Disease IgG Ab (Negative) Lyme Disease IgM Ab (Negative) 04/11/19 04/11/19 Range/Units 19:16 19:16 WBC (4.8-10.8) K/uL RBC (4.7-6.1) M/uL Hgb (14.0-18.0) g/dL Hct (42-52) % MCV (80-100) fL MCH (25-34) pg MCHC (32-36) g/dL RDW Std Deviation (36.4-46.3) fL RDW Coeff of Mary (11.5-14.5) % Plt Count (130-400) K/uL MPV (7.4-10.4) fL Immature Gran % (Auto) % Neut % (Auto) % Lymph % (Auto) % Rusk % (Auto) % Eos % (Auto) % Baso % (Auto) % Immature Gran # (Auto) (0.00-0.02) K/uL Neut # (Auto) (1.4-6.5) K/uL Lymph # (Auto) (1.2-3.4) K/uL Rusk # (Auto) (0.11-0.59) K/uL Eos # (Auto) (0-0.5) K/uL Baso # (Auto) (0-0.2) K/uL Sodium (136-145) mmol/L Potassium (3.5-5.1) mmol/L Chloride (98-107) mmol/L Carbon Dioxide (21-32) mmol/L Anion Gap (3-11) BUN (7-18) mg/dl Creatinine (0.6-1.4) mg/dl Est Cr Clr Drug Dosing Est GFR ( Amer) Est GFR (Non-Af Amer) BUN/Creatinine Ratio (10-20) Glucose (70-99) mg/dl Osmolality (280-300) mOsm/kg Lactate 1.8 (0.4-2.0) mmol/L Calcium (8.5-10.1) mg/dl Magnesium (1.8-2.4) mg/dl Total Bilirubin (0.2-1) mg/dl AST (15-37) U/L ALT (12-78) U/L Alkaline Phosphatase (45-117) U/L Total Creatine Kinase (39-308) U/L Troponin I (0-0.045) ng/ml Total Protein (6.4-8.2) gm/dl Albumin (3.4-5.0) gm/dl Globulin (2.5-4.0) gm/dl Albumin/Globulin Ratio (0.9-2) Lipase (73-393) U/L Lyme Disease IgG Ab Negative (Negative) Lyme Disease IgM Ab Negative (Negative) Imaging Data Radiologist's Impression: Radiology results as stated below per my review and the radiologist's interpretation: ULTRASOUND RIGHT UPPER QUADRANT ABDOMEN CLINICAL HISTORY: Right upper quadrant abdominal pain. COMPARISON STUDY: Abdominal CT dated 12/07/2007. TECHNIQUE: Real-time, grayscale, and color flow sonography of the right upper quadrant of the abdomen was performed. Images are reviewed in the transverse and longitudinal planes. FINDINGS: Liver: The liver is enlarged and demonstrates heterogeneously increased echotexture consistent with severe hepatic steatosis. Note that this degrades acoustic penetration of the liver. Fatty sparing is seen adjacent to gallbladder fossa. There is no intrahepatic biliary ductal dilatation. The main portal vein is patent. Gallbladder: The gallbladder is normal in appearance. No gallstones are identified. There is no gallbladder wall thickening or pericholecystic fluid. A sonographic Cramer's sign is reportedly absent. The common bile duct measures up to 0.5 cm in diameter. Pancreas: Not visualized due to overlying bowel gas. Right kidney: Survey images of the right kidney demonstrate normal size and echotexture. There is no hydronephrosis. Ascites: None. IMPRESSION: 1. No acute sonographic abnormality is identified in the right upper quadrant. No gallstones are seen. 2. Hepatomegaly and severe hepatic steatosis. Electronically signed by: Andrade Zuñiga M.D. 04/11/2019 8:[address] SCAN OF THE ABDOMEN AND PELVIS WITHOUT IV CONTRAST CLINICAL HISTORY: Generalized abdominal pain. Acute renal failure. Cramping. COMPARISON STUDY: Abdominal CT dated 12/07/2007. Abdominal ultrasound performed the same day 04/11/2019. TECHNIQUE: CT scan of the abdomen and pelvis is performed from the lung bases to the proximal femora. Images are reviewed in the axial, sagittal, and coronal planes. IV contrast was not administered for this examination due to renal insufficiency. Note that the examination is suboptimal without oral and IV contrast. A dose lowering technique was utilized adhering to the principles of ALARA. CT DOSE: 1701.77 mGy.cm FINDINGS: Lung bases: The heart is normal in size and without pericardial effusion. The lung bases are clear. Liver: The unenhanced liver is enlarged, measuring 25 cm in length. The liver demonstrates diffusely diminished attenuation consistent with severe hepatic steatosis. Fatty sparing is seen adjacent to the gallbladder fossa. There is no intrahepatic biliary ductal dilatation. Gallbladder: Unremarkable. Spleen: Normal in size and attenuation. Pancreas: The unenhanced pancreas is grossly unremarkable. Adrenal glands: Unremarkable. Kidneys: The unenhanced kidneys are normal in size and without hydronephrosis. There are no renal calculi identified. There is no evidence of contour deforming renal mass lesion. A subcentimeter hyperdense cyst is noted in the upper pole of the right kidney on image #112. A circumaortic left renal vein is incidentally noted. Abdominal vasculature: The abdominal aorta is normal in course and caliber noting mild atherosclerotic calcification. Bowel: There is no bowel obstruction. The appendix is well-visualized and normal. Peritoneum: There is no intraperitoneal free air or abdominal ascites. Lymphadenopathy: None. Pelvic viscera: The bladder is decompressed and not well evaluated. The prostate and seminal vesicles are normal as imaged. There is a small fat-containing right inguinal hernia. Skeletal structures: Degenerative changes noted in the sacroiliac joints. A large posterior disc osteophyte complex is seen at L4-L5. No lytic or blastic lesions are seen. IMPRESSION: 1. There are no acute infectious or inflammatory findings in the abdomen or pelvis. 2. Hepatomegaly and severe hepatic steatosis. Electronically signed by: Andrade Zuñiga M.D. 04/11/2019 8:19 PM Blood Pressure Blood Pressure Findings: Low blood pressure Blood Pressure Disposition: further management by hospitalist MDM Narrative This pt was evaluated and appeared to be in no distress. IV access was obtained and lab work was drawn. Pt was placed on the manager cardiac. IV access was obtained and labwork was drawn. Pt was having colicky type pain in RUQ. US was performed and is negative for acute taiwo. Lab work reveals an MELISSA with creatinine of 5.86. K is 4.6. CT abd pelvis was performed without contrast and reveals no significant etiology for MELISSA. Pt is likely dehydrated from working in hot temperatures and is on multiple BP meds as well as metformin. IV hyd ration was continued. Pt was discussed with the hospitalist service for further management. He and are aware of the plan and agree. Impression & Plan Acute renal failure, Hypotension Discharge Plan Visit Data *Final* Discharge Date/Time: 04/11/19 22:50 Chief Complaint: Dehydration Stated Complaint: SOB, CRAMPING, DEHYDRATED ED Provider: Rosanne Vides Discharge Problem: Acute renal failure, Hypotension Patient Disposition: Admitted As Inpatient Discharge Instructions Interventions: ED Discharge Assessment Last Done: 04/11/19 22:50 Discharge Problem: Acute renal failure Qualifiers: Acute renal failure type: unspecified Qualified Code(s): N17.9 - Acute kidney failure, unspecified Hypotension Qualifiers: Hypotension type: hypotension due to hypovolemia Qualified Code(s): I95.89 - Other hypotension The scribe's documentation has been prepared under my direction and personally reviewed by me in its entirety. I confirm that the note above accurately reflects all work, treatment, procedures, and medical decision making performed by me.
[2019-04-12] MEDS: BACLOFEN 20 MG TAB PO SCH ×4 (00:37→21:24)
[2019-04-12 01:34] LABS: BUN Creatinine Ratio 11.2 (10-20); Calcium 8.4 mg/dl (8.5-10.1); Creatinine Clr Calc Pharmacy 29.9 ml/min; Est GFR (African American) 17.3; Potassium 4.1 mmol/L (3.5-5.1)
[2019-04-12 03:19] LABS: Appearance Urine Clear (Clear); Bacteria Urine Automated Negative (Negative); Bilirubin Urine Negative (Negative); Blood Urine 2+ (Negative); Color Urine Yellow; Glucose Urine UA Negative (Negative); Ketones Urine Negative (Negative); Leukocyte Esterase Urine Negative (Negative); Nitrite Urine Negative (Negative); Protein Urine Trace (Negative); RBC Urine Automated 0-4 /hpf (0-4); Specific Gravity Urine 1.017 (1.000-1.030); Urobilinogen Urine Negative (Negative)
[2019-04-12 07:09] LABS: Basophils # (auto) 0.04 K/uL (0-0.2); Basophils % (auto) 0.6 %; Eosinophils # (auto) 0.24 K/uL (0-0.5); Eosinophils % (auto) 3.4 %; Hematocrit (blood only) 39.7 % (42-52); Immature Granulocytes # (auto) 0.04 K/uL (0.00-0.02); Immature Granulocytes % (auto) 0.6 %; Lymphocytes # (auto) 2.62 K/uL (1.2-3.4); Lymphocytes % (auto) 36.8 %; Mean Corpuscular Hgb Conc 35.3 g/dL (32-36); Mean Corpuscular Volume 91.9 fL (80-100); Mean Platelet Volume 8.7 fL (7.4-10.4); Monocytes # (auto) 0.73 K/uL (0.11-0.59); Monocytes % (auto) 10.3 %; Neutrophils # (auto) 3.44 K/uL (1.4-6.5); Neutrophils % (auto) 48.3 %; Platelet Count 234 K/uL (130-400); RDW Coefficient of Variation 13.4 % (11.5-14.5); RDW Standard Deviation 44.6 fL (36.4-46.3); Red Blood Count 4.32 M/uL (4.7-6.1); White Blood Count 7.11 K/uL (4.8-10.8)
[2019-04-12 07:23] LABS: Prothrombin Time 10.6 Seconds (9.0-12.0)
[2019-04-12 07:41] LABS: Albumin Level 3.7 gm/dl (3.4-5.0); BUN Creatinine Ratio 14.2 (10-20); Calcium 8.6 mg/dl (8.5-10.1); Creatinine Clr Calc Pharmacy 41.3 ml/min; Est GFR (African American) 25.6; Est GFR (Non-African American) 22.1; Potassium 4.1 mmol/L (3.5-5.1)
[2019-04-12 07:48] LABS: Albumin Globulin Ratio 1.1 (0.9-2); Bilirubin,Total 0.9 mg/dl (0.2-1); Globulin 3.4 gm/dl (2.5-4.0); Total Protein 7.1 gm/dl (6.4-8.2)
[2019-04-12] MEDS: NEBIVOLOL HCL 5 MG TAB PO SCH (08:00)
[2019-04-12] MEDS: AMLODIPINE BESYLATE 5 MG TAB PO SCH (08:00)
[2019-04-12] MEDS: HEPARIN SOD 5,000 UNIT/0.5 ML VIAL SQ SCH ×2 (08:40→21:19)
[2019-04-12] MEDS ORDERED: BUTALBITAL/ACETAMIN/CAFFEINE TAB PO PRN (10:37)
--- NOTE | 2019-04-12 11:01 | CT Scan Report ---
CT OF THE HEAD WITHOUT CONTRAST CLINICAL HISTORY: new onset headaches COMPARISON STUDY: No previous studies for comparison. CT DOSE: 632.21 mGy.cm TECHNIQUE: Helical axial images of the head were obtained without IV contrast. Automated exposure con trol was utilized for the study. A dose lowering technique was utilized adhering to the principles o f ALARA. FINDINGS: No acute intracranial hemorrhage, midline shift or mass effect is present. The ventricular system is unremarkable. The basilar cisterns are patent. No extra-axial collections are present. Ther e are no findings to suggest acute dural sinus thrombosis or acute territorial infarct. No significan t calvarial abnormalities are present. Left sphenoid sinus mucous retention cyst is noted. IMPRESSION: No acute intracranial findings. Electronically signed by: Cali Orosco M.D. 04/12/2019 11:00 AM
[2019-04-12] MEDS: DICLOFENAC SOD 1% GEL 100 GM TUBE EXT SCH ×4 (12:13→21:24)
--- NOTE | 2019-04-12 12:46 | Family Medicine Progress Note ---
Date of Service April 12, 2019 Assessment & Plan (1) Acute renal failure: 53-year-old male with history of hypertension, prediabetes, COPD, GERD, with myalgias in the setting of dehydration. Concerning for acute kidney injury. 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 -no concern for rhabdomyolysis, mild increase in CK likely due to activity Hyponatremia likely hypovolemic -improving, likely due to dehydration -Continue LR at 200 cc/h -will continue to monitor Hypermagnesemia and hypercalcemia -hypercalcemia resolved. -hypermag downtrending -will continue to monitor with AM labs Hepatomegaly and severe hepatic steatosis -incidental CT finding LFT abnormalities: Total bili 1.1 and AST 55, possibly somewhat from hemoconcentrated sample in the setting of significant dehydration followup outpt Hypertension Continue amlodipine and nebivolol Hold lisinopril in the setting of MELISSA Prediabetes Hold metformin Glucose checks per unit protocol COPD Continue Combivent Respimat and Spiriva inhalers GERD Continue ranitidine as needed Code: Full Dispo: PCU telemetry DVT prophylaxis: Heparin SQ (2) Diabetes mellitus type 2 in nonobese: (3) Acid reflux: (4) COPD (chronic obstructive pulmonary disease): Supervising Physician Co-Signing Physician Notes I personally examined the patient and verified all sánchez points of history and exam, discussed case, and agree with decision making with Dr Naqvi. feeling better but still significant headache. no other neuro s/s. was trying to drink a lot but was sweating profusely, also nauseated w stomach cramps vitals noted pleasant nad breathing unlabored no pallor or icterus. no focal neuro deficits. surprisingly little cervical musculature hypertonicity. ARF - due to dehydration compounded by NSAIDs/ACEi -improving nicely -continue aggressive IVF -continue to hold ACEi and NSAIDs -educated on ways to monitor hydration in future headache -related to dehydration most likely - given severe, fairly intractable, and doesn't normally get headaches - CT head warranted -late addendum - CT negative. given paucity of somatic dysfunction, likely dehydration induced / migraine-like - will try to manage as such DJD pain -discussed means to vary treatments to avoid future harm (foundation of diclofenac gel, then hopefully less need overall for systemic treatment, and discussed using different treatments different days - alleve one time (assuming full renal recovery, which is expected), tylenol arthritis another - so that overall intake of any one substance is fairly low. fatty liver -outpt f/u, likely relates to metabolic syndrome. this would obviously limit (but not contraindicate) tylenol usage - but above strategy would likely put him at <1000mg daily, and not taking some every day. otherwise as above stable for med/surg hopefully home tomorrow Subjective Mr. Lee states he has a 7/10 headache currently which was what triggered the start of his current illness. Still has occasional cramping in his lower extremities and abdomen. Denies chest pain, SOB, palps, diarrhea/constipation or leg pain. Review of Systems Review of Systems: All systems reviewed & are unremarkable except as noted in HPI & below Physical Exam Physical Exam: General: Alert, oriented. No acute distress HEENT: NC/AT, PERRLA, EOMI, oropharynx moist. Chest: Nontender to palpation. CV: RRR, Normal s1, s2. No murmurs appreciated Resp: Breath sounds decreased but clear bilaterally, no increased effort of breathing. Abdomen: Soft, nontender, nondistended. No guarding. No organomegaly appreciated. Extremities: No edema. Results & Data Vital Signs (Past 12 Hours) Vital Signs Temp Pulse Resp BP Pulse Ox 04/12/19 11:53 36.5 C 55 L 18 124/69 94 04/12/19 07:28 36.6 C 57 L 20 120/69 96 04/12/19 03:07 36.7 C 55 L 18 102/58 L 93 Laboratory Results Laboratory Results - last 24 hr 04/11/19 04/11/19 04/11/19 19:01 19:16 19:16 WBC 14.74 H RBC 4.98 Hgb 16.5 Hct 44.8 MCV 90.0 MCH 33.1 MCHC 36.8 H RDW Std Deviation 44.0 RDW Coeff of Mary 13.4 Plt Count 340 MPV 8.9 Immature Gran % (Auto) 0.7 Neut % (Auto) 69.1 Lymph % (Auto) 18.0 Garza % (Auto) 11.2 Eos % (Auto) 0.6 Baso % (Auto) 0.4 Immature Gran # (Auto) 0.11 H Neut # (Auto) 10.18 H Lymph # (Auto) 2.65 Garza # (Auto) 1.65 H Eos # (Auto) 0.09 Baso # (Auto) 0.06 PT INR Sodium 132 L Potassium 4.6 Chloride 97 L Carbon Dioxide 19 L Anion Gap 16.0 H BUN 48 H Creatinine 5.86 H* Est Cr Clr Drug Dosing Not Reportable Est GFR ( Amer) 11.9 Est GFR (Non-Af Amer) 10.2 BUN/Creatinine Ratio 8.2 L Glucose 125 H Osmolality 297 Lactate Calcium 10.4 H Magnesium 2.6 H Total Bilirubin 1.1 H AST 55 H ALT 51 Alkaline Phosphatase 75 Total Creatine Kinase 831 H Troponin I < 0.015 Total Protein 9.2 H Albumin 5.0 Globulin 4.2 H Albumin/Globulin Ratio 1.2 Lipase 216 Urine Color Urine Appearance Urine pH Ur Specific [place] Urine Protein Urine Glucose (UA) Urine Ketones Urine Blood Urine Nitrite Urine Bilirubin Urine Urobilinogen Ur Leukocyte Esterase Urine WBC (Auto) Urine RBC (Auto) U Hyaline Cast (Auto) U Epithel Cells (Auto) Urine Bacteria (Auto) Lyme Disease IgG Ab Lyme Disease IgM Ab 04/11/19 04/11/19 04/12/19 19:16 19:16 00:50 WBC RBC Hgb Hct MCV MCH MCHC RDW Std Deviation RDW Coeff of Mary Plt Count MPV Immature Gran % (Auto) Neut % (Auto) Lymph % (Auto) Garza % (Auto) Eos % (Auto) Baso % (Auto) Immature Gran # (Auto) Neut # (Auto) Lymph # (Auto) Garza # (Auto) Eos # (Auto) Baso # (Auto) PT INR Sodium 135 L Potassium 4.1 Chloride 103 Carbon Dioxide 23 Anion Gap 9.0 BUN 48 H Creatinine 4.28 H D Est Cr Clr Drug Dosing 29.9 Est GFR ( Amer) 17.3 Est GFR (Non-Af Amer) 15.0 BUN/Creatinine Ratio 11.2 Glucose 117 H Osmolality Lactate 1.8 Calcium 8.4 L D Magnesium Total Bilirubin AST ALT Alkaline Phosphatase Total Creatine Kinase Troponin I Total Protein Albumin Globulin Albumin/Globulin Ratio Lipase Urine Color Urine Appearance Urine pH Ur Specific [place] Urine Protein Urine Glucose (UA) Urine Ketones Urine Blood Urine Nitrite Urine Bilirubin Urine Urobilinogen Ur Leukocyte Esterase Urine WBC (Auto) Urine RBC (Auto) U Hyaline Cast (Auto) U Epithel Cells (Auto) Urine Bacteria (Auto) Lyme Disease IgG Ab Negative Lyme Disease IgM Ab Negative 04/12/19 04/12/19 04/12/19 03:00 06:48 06:48 WBC 7.11 RBC 4.32 L Hgb 14.0 Hct 39.7 L MCV 91.9 MCH 32.4 MCHC 35.3 RDW Std Deviation 44.6 RDW Coeff of Mary 13.4 Plt Count 234 MPV 8.7 Immature Gran % (Auto) 0.6 Neut % (Auto) 48.3 Lymph % (Auto) 36.8 Garza % (Auto) 10.3 Eos % (Auto) 3.4 Baso % (Auto) 0.6 Immature Gran # (Auto) 0.04 H Neut # (Auto) 3.44 Lymph # (Auto) 2.62 Garza # (Auto) 0.73 H Eos # (Auto) 0.24 Baso # (Auto) 0.04 PT INR Sodium 134 L Potassium 4.1 Chloride 103 Carbon Dioxide 25 Anion Gap 6.0 BUN 44 H Creatinine 3.10 H D Est Cr Clr Drug Dosing 41.3 Est GFR ( Amer) 25.6 Est GFR (Non-Af Amer) 22.1 BUN/Creatinine Ratio 14.2 Glucose 142 H Osmolality Lactate Calcium 8.6 Magnesium Total Bilirubin 0.9 AST 45 H ALT 41 Alkaline Phosphatase 57 Total Creatine Kinase 719 H Troponin I Total Protein 7.1 D Albumin 3.7 Globulin 3.4 Albumin/Globulin Ratio 1.1 Lipase Urine Color Yellow Urine Appearance Clear Urine pH 5.0 Ur Specific [place] 1.017 Urine Protein Trace H Urine Glucose (UA) Negative Urine Ketones Negative Urine Blood 2+ H Urine Nitrite Negative Urine Bilirubin Negative Urine Urobilinogen Negative Ur Leukocyte Esterase Negative Urine WBC (Auto) 1-5 Urine RBC (Auto) 0-4 U Hyaline Cast (Auto) 5-10 H U Epithel Cells (Auto) 5-10 H Urine Bacteria (Auto) Negative Lyme Disease IgG Ab Lyme Disease IgM Ab 04/12/19 04/12/19 06:48 06:48 WBC RBC Hgb Hct MCV MCH MCHC RDW Std Deviation RDW Coeff of Mary Plt Count MPV Immature Gran % (Auto) Neut % (Auto) Lymph % (Auto) Garza % (Auto) Eos % (Auto) Baso % (Auto) Immature Gran # (Auto) Neut # (Auto) Lymph # (Auto) Garza # (Auto) Eos # (Auto) Baso # (Auto) PT 10.6 INR 1.0 Sodium Potassium Chloride Carbon Dioxide Anion Gap BUN Creatinine Est Cr Clr Drug Dosing Est GFR ( Amer) Est GFR (Non-Af Amer) BUN/Creatinine Ratio Glucose Osmolality Lactate Calcium Magnesium 2.5 H Total Bilirubin AST ALT Alkaline Phosphatase Total Creatine Kinase Troponin I Total Protein Albumin Globulin Albumin/Globulin Ratio Lipase Urine Color Urine Appearance Urine pH Ur Specific [place] Urine Protein Urine Glucose (UA) Urine Ketones Urine Blood Urine Nitrite Urine Bilirubin Urine Urobilinogen Ur Leukocyte Esterase Urine WBC (Auto) Urine RBC (Auto) U Hyaline Cast (Auto) U Epithel Cells (Auto) Urine Bacteria (Auto) Lyme Disease IgG Ab Lyme Disease IgM Ab Medications Administered Home Medications amlodipine 10 mg PO DAILY 01/14/19 [History Confirmed 04/11/19] ipratropium-albuterol [Combivent Respimat] 2 puff INHALATION BID PRN 01/14/19 [History Confirmed 04/11/19] lisinopril 40 mg PO DAILY 01/14/19 [History Confirmed 04/11/19] metformin 500 mg PO BID 01/14/19 [History Confirmed 04/11/19] tiotropium bromide [Spiriva with HandiHaler] 1 cap INHALATION DAILY PRN 01/14/19 [History Confirmed 04/11/19] nebivolol 5 mg tablet 5 mg PO DAILY #90 tab 03/20/19 [Rx Confirmed 04/11/19] acetaminophen 300 mg-codeine 30 mg tablet 0.5 tab PO DIRECTED PRN #30 tab 04/02/19 [History Confirmed 04/11/19] ranitidine 150 mg tablet 150 mg PO BID PRN #60 tab 04/02/19 [History Confirmed 04/11/19] meloxicam 15 mg PO DAILY 04/11/19 [History Confirmed 04/11/19] Active Medications Acetaminophen (Tylenol) 650 mg PO Q4H PRN PRN Reason: Pain or Fever Stop: 05/12/19 00:10 Acetaminophen/Butalbital/Caffeine (Fioricet) 2 tab PO Q4H PRN PRN Reason: Headache Stop: 05/12/19 10:36 Last Admin: 04/12/19 11:43 Dose: 2 tab Documented by: Albuterol (Combivent Respimat) 2 puffs INH BID PRN PRN Reason: Shortness Of Breath Stop: 05/12/19 00:10 Amlodipine Besylate (Norvasc) 10 mg PO DAILY [facility] Stop: 05/12/19 08:59 Last Admin: 04/12/19 08:00 Dose: 10 mg Documented by: Baclofen (Lioresal) 20 mg PO TID [facility] Stop: 05/12/19 00:10 Last Admin: 04/12/19 08:00 Dose: 20 mg Documented by: Diclofenac Sodium (Voltaren 1% Top) 1 appln EXT QID [facility] Stop: 05/12/19 10:59 Last Admin: 04/12/19 12:13 Dose: Not Given Documented by: Heparin Sodium (Porcine) (Heparin Sodium (Porcine)) 5,000 units SQ Q12 [facility] Stop: 05/12/19 08:59 Last Admin: 04/12/19 08:40 Dose: 5,000 units Documented by: Lactated Ringer's (Lr) 1,000 mls @ 200 mls/hr IV .Q5H [facility] Stop: 05/12/19 00:10 Last Infusion: 04/12/19 11:24 Dose: 200 mls/hr Documented by: Morphine Sulfate (Morphine Sulfate) 2 mg IV Q4H PRN PRN Reason: Pain Stop: 04/26/19 00:10 Nebivolol (Bystolic) 5 mg PO DAILY [facility] Stop: 05/12/19 08:59 Last Admin: 04/12/19 08:00 Dose: 5 mg Documented by: Ondansetron HCl (Zofran) 4 mg IV Q6H PRN PRN Reason: Nausea Stop: 05/12/19 00:10 Ranitidine HCl (Zantac) 150 mg PO BID PRN PRN Reason: Heartburn Stop: 05/12/19 00:10 Tiotropium [place] (Spiriva) 1 puffs INH DAILY PRN PRN Reason: Shortness Of Breath Stop: 05/12/19 00:10 PG Care Time/CCT Total # of Minutes Spent Total Time Spent with Patient: Total time spent is greater than 50% in coordination of care (as documented) at patient's floor/unit and/or counseling patient: Resident Activity Tracking Resident Involvement: Resident Care Provided Care Provided: Adult Hospital Medicine (1) Acute renal failure Acute renal failure type: unspecified Qualified Code(s): N17.9 - Acute kidney failure, unspecified
[2019-04-13] MEDS: LACTATED RINGER'S 1,000 ML IV SCH ×3 (01:05→11:09)
[2019-04-13 06:05] LABS: Basophils # (auto) 0.04 K/uL (0-0.2); Basophils % (auto) 0.7 %; Eosinophils # (auto) 0.21 K/uL (0-0.5); Eosinophils % (auto) 3.7 %; Immature Granulocytes # (auto) 0.02 K/uL (0.00-0.02); Immature Granulocytes % (auto) 0.4 %; Lymphocytes # (auto) 2.37 K/uL (1.2-3.4); Lymphocytes % (auto) 42.1 %; Mean Corpuscular Hgb Conc 34.1 g/dL (32-36); Mean Corpuscular Volume 91.7 fL (80-100); Mean Platelet Volume 8.8 fL (7.4-10.4); Monocytes # (auto) 0.64 K/uL (0.11-0.59); Monocytes % (auto) 11.4 %; Neutrophils # (auto) 2.35 K/uL (1.4-6.5); Neutrophils % (auto) 41.7 %; Platelet Count 208 K/uL (130-400); RDW Coefficient of Variation 13.1 % (11.5-14.5); RDW Standard Deviation 43.8 fL (36.4-46.3); Red Blood Count 4.47 M/uL (4.7-6.1); White Blood Count 5.63 K/uL (4.8-10.8)
[2019-04-13 06:55] LABS: BUN Creatinine Ratio 15.3 (10-20); Calcium 9.1 mg/dl (8.5-10.1); Creatinine Clr Calc Pharmacy 86.6 ml/min; Est GFR (African American) 62.6; Potassium 4.4 mmol/L (3.5-5.1)
--- NOTE | 2019-04-13 07:28 | Discharge Summary ---
Date of Service April 13, 2019 Admission HPI Per Admitting Provider 53-year-old male with history of hypertension, prediabetes, COPD, GERD, previous history of Lyme disease presents with myalgias in the setting of dehydration. Reports cramping started last night and everywhere now. Had nausea and vomiting this afternoon. associate with headache, lightheadedness. Denies any fever, chills, chest pain, shortness of breath, nausea, vomiting, abdominal pain, diarrhea or dysuria at this time. Last urinated at 8:00 this morning. Patient was worried he may have Lyme disease again so presented to the ED Denies previous history of smoking however both parents were heavy smokers History of incarcerated hernia repair Admission Exam Per Admitting Provider General: In mild distress due to active cramping myalgias HEENT: dry mucous membranes Neuro: A&O x 4 Pulm: CTAB equal breath sounds bilaterally CV: RRR, no m/r/g Abdomen:+BS, no TTP in all quadrants, non-distended LE: no LE edema, no calf TTP Principal Diagnosis Dehydration Acute Kidney Injury Discharge Exam General: Alert, oriented. Resting in bed with hands over eyes. HEENT: NC/AT, PERRLA, EOMI, oropharynx moist. Chest: Nontender to palpation. CV: RRR, Normal s1, s2. No murmurs appreciated Resp: Breath sounds decreased but clear bilaterally, no increased effort of breathing. Abdomen: Soft, nontender, nondistended. No guarding. No organomegaly appreciated. Extremities: No edema. 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 Admitted on April 11 due to concerning acute kidney injury. Pt also developed a migraine-like headache as a result which had to be treated with the combination of depakote, magnesium and zofran. Pt was discharged on April 13. Headache -associated with nausea, vomitting, dizziness, photophobia. -of note, pt states he had an ear infection earlier in the week associated with vertigo but denies tinnitus. -symptoms highly suggestive of an acute migraine likely triggered by his dehydration however. -improved on discharge to 5/10 after treated with combo of depakote 500mg, 2g Magnesium sulfate and 8mg Zofran. -Discharged with PRN zofran and advised headache will likely fade soon. -CT head- neg for mass/bleed -headache nonresponsive to tylenol, NSAIDs were CI due to MELISSA -pt gets GI upset with tramadol -fiorocet was tried with no significant relief. -Close PCP followup strongly advised (appt scheduled for March 18, 3019). 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 -Pt presented on admission with Cr of 5.86. -Much improved on day of discharge at 1.48 after administration of IV fluids. -Continued to hold SAAD and metformin at discharge, advised to followup with PCP in next week for restart. -Advised no NSAIDs, pt states chronic user of Aleve, has not started the meloxicam but was advised to not take. -no concern for rhabdomyolysis, though mild increase in CK (719 on admission and downtrending on discharge) likely due to physical activity muscle breakdown. -advised on discharge to maintain urine at light yellow, NOT cola or apple cider colored. Range of about 10 bottles of 16oz of water a day but will vary based on urine color. -Close PCP monitoring advised. Hyponatremia likely hypovolemic -RESOLVED on discharge - likely due to dehydration, admitted with level of 132. -Received LR at 200 cc/h Hypermagnesemia and hypercalcemia -BOTH RESOLVED on discharge -admitted with Ca level of 10.4 and Mag of 2.6. -likely due to dehydration Hepatomegaly and severe hepatic steatosis -incidental CT finding likely related to BMI of 40, metabolic syndrome. CT noted hepatomegaly, severe hepatic steatosis LFT abnormalities: Total bili 1.1 and AST 55 on admission, possibly somewhat from hemoconcentrated sample in the setting of significant dehydration Close outpt followup for additional workup strongly suggested. Hypertension Continue amlodipine and nebivolol Hold lisinopril in the setting of MELISSA Followup with PCP for restart of SAAD Prediabetes Hold metformin Glucose checks per unit protocol Followup with PCP for restart COPD Continue Combivent Respimat and Spiriva inhalers GERD Continue ranitidine as needed (2) Diabetes mellitus type 2 in nonobese: (3) Acid reflux: (4) COPD (chronic obstructive pulmonary disease): Total Time Total Time Spent Total Time Spent (In Minutes): >30 Discharge Plan Discharge Items Patient Disposition: Home - Self-Care Reason For Visit: DEHYDRATION Discharge Diagnosis: Acute Kidney Injury Dehydration Discharge Goals: Decrease discomfort, Improve disease control and Improve fun ction Activity: Per 'Additional Instructions' section Non-emergency contact: Primary Care Provider Call non-emergency contact if: your symptoms worsen and you have a fever Follow-up/Referrals: Matilde Pete DO [Primary Care Provider] - 04/17/19 3:00 pm (follow up appointment at your primary care physician office with the physician assistant public defender, Gabriela) Diet: Carb Consistent or DM2 Addtl Provider Instructions: You were admitted because of severe dehydration which caused some injury to your kidneys and is likely causing your headache. Acute Kidney injury -Please continue to drink LOTS of water after discharge to make sure your body is hydrated. Pay close attention to your urine color. You want it to be very light yellow, NOT cola or apple cider colored. To have your urine be this color, this will likely take the form of about 10 of the 16oz water bottles per day but it will vary based on your urine color. -Please STOP for the time being your saad inhibitor medication LISINOPRIL and your metformin medication. -Please followup with your primary care physician at your already scheduled appointment of April 17 2019 at 3pm after discharge to ensure that your kidney function labs have returned to baseline, and to also know when to restart your medications above (the lisinopril and metformin). -Please present to the nearest emergency room should your symptoms return or worsen. Headache -Your headache is likely related to your dehydration triggering a migraine. The CT of your head did not show any abnormalities. -Please continue to stay hydrated as advised above especially at work, so that a migraine cannot be triggered. -We are discharging you with ondansetron (Zofran) to be taken as needed for your nausea. We anticipate that your headache will fade with time. -Please followup with your primary care doctor at your scheduled appointment (April 17 at 3pm) for continued assessment and for further prescriptions for migraines if necessary. -Please present to the nearest emergency room should your headache worsen or become further debilitating before your appointment. Prescriptions: New ondansetron 8 mg tablet,disintegrating 8 mg PO DAILY 7 Days Qty: 7 RF: 0 Continued Bystolic 5 mg tablet 5 mg PO DAILY Qty: 90 RF: 1 ranitidine HCl 150 mg tablet 150 mg PO BID PRN (Reason: Heartburn) Qty: 60 RF: 0 acetaminophen-codeine 300-30 mg tablet 0.5 tab PO DIRECTED PRN (Reason: Pain) Qty: 30 RF: 0 amlodipine 10 mg tablet 10 mg PO DAILY RF: 0 Combivent Respimat 20-100 mcg/actuation mist 2 puff Inhalation BID PRN (Reason: Shortness Of Breath) RF: 0 Spiriva with HandiHaler 18 mcg capsule, w/inhalation device 1 cap Inhalation DAILY PRN (Reason: Shortness Of Breath) RF: 0 Discontinued lisinopril 40 mg tablet 40 mg PO DAILY RF: 0 metformin 500 mg tablet extended release 24 hr 500 mg PO BID RF: 0 meloxicam 15 mg tablet 15 mg PO DAILY RF: 0 Stand-Alone Forms: [facility], Work/School Release (Inpt) Discharge Orders: Discharge Order (Routine); Ordered 04/13/19 Ordered By: Caprice Naqvi Admission Data Admit Date/Time: 04/11/19 21:51 Attending Provider: Wes De La Cruz Admit Provider: Pantera Reynolds Primary Care Provider: Matilde Pete Other Providers: Pantera Reynolds Service: Medical Other Interventions: Discharge Summary Assessment (RN) Last Done: 04/13/19 14:46 DC Date/Time DO NOT enter until pt leaves facility: 04/13/19 15:12 Supervising Physician Co-Signing Physician Notes I personally examined the patient and verified all sánchez points of history and exam, discussed case, and agree with decision making with Dr Naqvi. feeling better overall headache persists. Somewhat nauseated and dizzy. Later revisited by Dr. Naqvi and feeling good enough to go home. Extensive discussions with patient and . He relates some of not being able to eat well simply being that he does not like the food here. vitals noted pleasant nad breathing unlabored no pallor or icterus. no focal neuro deficits. ARF - due to dehydration compounded by NSAIDs/ACEi -improving nicely -Stable for home with p.o. fluid intake, and repeat BMP next week -continue to hold ACEi and NSAIDs -educated on ways to monitor hydration in future headache -related to dehydration most likely triggering a migraine -Improving now. Stable for home - CT negative for acute intracranial findings. given paucity of somatic dysfunction, likely dehydration induced / migraine-like - will try to manage as such DJD pain -discussed means to vary treatments to avoid future harm (foundation of diclofenac gel, then hopefully less need overall for systemic treatment, and discussed using different treatments different days - alleve one time (assuming full renal recovery, which is expected), tylenol arthritis another - so that overall intake of any one substance is fairly low. fatty liver -outpt f/u, likely relates to metabolic syndrome. this would obviously limit (but not contraindicate) tylenol usage - but above strategy would likely put him at <1000mg daily, and not taking some every day. otherwise as above Stable for home Resident Activity Tracking Resident Involvement: Resident Care Provided Care Provided: Adult Hospital Medicine
[2019-04-13 08:00] LABS: Magnesium 2.2 mg/dl (1.8-2.4)
[2019-04-13] MEDS: BACLOFEN 20 MG TAB PO SCH (08:02)
[2019-04-13] MEDS: AMLODIPINE BESYLATE 5 MG TAB PO SCH (08:02)
[2019-04-13] MEDS: NEBIVOLOL HCL 5 MG TAB PO SCH (08:03)
[2019-04-13] MEDS: DICLOFENAC SOD 1% GEL 100 GM TUBE EXT SCH ×2 (08:03→13:05)
[2019-04-13] MEDS: HEPARIN SOD 5,000 UNIT/0.5 ML VIAL SQ SCH (08:04)
[2019-04-13] MEDS ORDERED: ONDANSETRON 4 MG OD TAB PO STA (10:16)
[2019-04-13] MEDS ORDERED: VALPROATE SOD 500 MG in DEXTROSE 5% 50 ML IV STA (10:32)
[2019-04-13] MEDS: MAGNESIUM SULFATE / D5W 1 GM/100 ML BAG IV SCH ×2 (12:06→13:06)
== END 2019-04-13 15:12 | disposition home or self-care (01) | DRG 683 ==
LOC: ED 18:38 → 2S 21:51 → SUATTDRO 21:51 → 2S 22:50 → 4E 04-12 13:36